=== PATIENT | female | born 1955 | race Caucasian/White ===

== ENCOUNTER → 2017-09-25 | Outpatient (CLI) | payer OTHER ==
[~2017-09-25] MED LIST: FLEXERIL10 MG PO; HYDROCHLOROTH12.5 M3 PO; HYDROCODON-ACE1 EAC7 PO; NAPROSYN500 MG PO; PERCOCET 5/31 TABLET PO; PRILOSEC20 MG PO
== END | disposition home or self-care (01) ==
LOC: CDC 12:08
DX: Z01.810 Encounter for preprocedural cardiovascular examination (principal); M75.22 Bicipital tendinitis, left shoulder; M75.122 Complete rotator cuff tear or rupture of left shoulder, not specified as traumatic; M19.012 Primary osteoarthritis, left shoulder
CPT/HCPCS: 93000